=== PATIENT | female | born 1975 | race Caucasian/White ===

== ENCOUNTER → 2017-06-13 | Outpatient (CLI) | payer OTHER ==
--- NOTE | 2017-06-13 16:40 | 2DMMODE ---
[place] [address] 2 D/M-MODE ECHOCARDIOGRAM Name: CORI CEDENO Room: [facility]#: [id number] Admission: 06/13/17 Attend Phys: Physician not on s Discharge: Date of : 73 Date of Service: 06/13/17 [facility] Report #: [id number] THIS REPORT FOR: //name// APPROVED REPORT Study performed: 06/13/2017 14:45:08 EXAM: Comprehensive 2D, Doppler, and color-flow Echocardiogram, Bubble Study Patient Location: Out-Patient Status: routine BSA: 1.80 HR: 92 bpm BP: 120/84 mmHg Other Information Study Quality: Good Indications Abn. MRI Headaches Echo Enhancing Agent Indication: Rule out Shunt Agent(s) / Amount(s) Used: Agitated Saline 8 cc 2D Dimensions LVEF(%): 65.09 (>50%) IVSd: 11.14 (7-11mm) LVOT Diam: 19.61 (18-24mm) LVDd: 39.71 mm PWd: 8.02 (7-11mm) Ascending Ao: 25.29 (22-36mm) LVDs: 25.75 (25-40mm) Aortic Root: 27.94 mm Georges's LVEF: 65.09 % Volumes Left Atrial Volume (Systole) LA ESV Index: 15.50 mL/m2 Aortic Valve AoV Peak Zain.: 1.30 m/s AO Peak Gr.: 6.71 mmHg LVOT Max P.42 mmHg AO Mean Gr.: 3.59 mmHg LVOT Mean P.53 mmHg LVOT Max V: 1.16 m/s AO V2 VTI: 23.63 cm LVOT Mean V: 0.73 m/s JACE (VTI): 2.62 cm2 LVOT V1 VTI: 20.49 [place] [address] 2 D/M-MODE ECHOCARDIOGRAM Name: CORI CEDENO Room: [facility]#: [id number] Admission: 06/13/17 Attend Phys: Physician not on s Discharge: Date of : 73 Date of Service: 06/13/17 [facility] Report #: [id number] Mitral Valve E/A Ratio: 1.20 MV Decel. Time: 163.68 ms MV E Max Zain.: 0.87 m/s MV PHT: 47.47 ms MVA (PHT): 4.63 cm2 TDI E/Lateral E': 6.21 E/Medial E': 6.69 Medial E' Zain.: 0.13 m/s Lateral E' Zain.: 0.14 m/s Pulmonary Valve PV Peak Zain.: 0.84 m/s PV Peak Gr.: 2.80 mmHg Left Ventricle The left ventricle is normal size. There is normal LV segmental wall motion. There is normal left ventricular wall thickness. Left ventricular systolic function is normal. The left ventricular ejection fraction is within the normal range. LVEF is 55-60%. The left ventricular diastolic function is normal. Right Ventricle The right ventricle is normal size. The right ventricular systolic function is normal. Atria The left atrium size is normal. injection of bubbles demonstrated no obvious shunt, although the images were technically difficult The right atrium size is normal. Aortic Valve The aortic valve is normal in structure. No aortic regurgitation is present. There is no aortic valvular stenosis. Mitral Valve The mitral valve is normal in structure. Trace mitral regurgitation. No evidence of mitral valve stenosis. Tricuspid Valve The tricuspid valve is normal in structure. Trace tricuspid regurgitation. Pulmonic Valve The pulmonary valve is normal in structure[place] [address] 2 D/M-MODE ECHOCARDIOGRAM Name: CORI CEDENO Room: [facility]#: [id number] Admission: 06/13/17 Attend Phys: Physician not on s Discharge: Date of : 73 Date of Service: 06/13/17 1640 Report #: [id number] regurgitation.. Great Vessels The aortic root is normal in size. IVC is normal in size and collapses with >50% inspiration Pericardium There is no pericardial effusion. <Conclusion> LVEF is 55-60%. injection of bubbles demonstrated no obvious shunt, although the images were technically difficult <ELECTRONICALLY SIGNED> By: Al Whitley MD, FACC 06/13/17 1640 1640 1640 Al Whitley MD, FACC /INF
== END ==
LOC: M.CRD 06-06 15:00
DX: R51 Headache (principal)